=== PATIENT | female | born 1985 | race Hispanic/Latino ===

== ENCOUNTER 2016-12-20 02:10 | Inpatient (IN) | payer BC ==
[2016-12-20] MEDS ORDERED: STADOL IV PRN (03:13)
[2016-12-20] MEDS ORDERED: MINERAL OIL PO PRN (03:13)
[2016-12-20] MEDS ORDERED: POLYCILLIN/NS 2 GM/100 ML 2 GM/100 ML BAG IV ONE (03:13)
[2016-12-20] MEDS ORDERED: BRETHINE IVP PRN (03:13)
[2016-12-20] MEDS ORDERED: BRETHINE SUB-Q PRN (03:13)
[2016-12-20] MEDS ORDERED: PHENERGAN PO PRN ×2 (03:13→07:35)
[2016-12-20] MEDS ORDERED: ePHEDrine SULFATE IV PRN (03:13)
[2016-12-20] MEDS ORDERED: XYLOCAINE 2% INFILTRATI ONE (03:13)
--- NOTE | 2016-12-20 03:21 | History and Physical Report ---
History of Present Illness Date of examination: 12/20/16 Date of admission: 12/20/16 03:15 History of present illness: Presented to Labor & Delivery with c/o regular contractions initial cervical exam was 5cm Menstrual History Regularity: regular Menses every: 28 days Duration: 5 LMP: 03/10/2016 LMP reliability: definite LMP character: normal test type: urine test Date: 05/05/2016 Planned ? yes EDC Calculations Past History : 2 Term Births: 1 Premature Births: 0 Living Children: 1 Para: 1 Mult. Births: 0 Prev : 0 Prev. attempt? 0 Aborta: 0 Elect. Ab: 0 Spont. 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 Infection History Hx of STD: none Varicella/Chicken Pox Status: Previous Disease Genetic History Congenital Heart Defect: Mom: no Dad: no Salvatore Disease: Mom: no Dad: no Thalassemia Mom: no Dad: no Neural Tube Defect Mom: no Dad: no Down's Syndrome Mom: no Dad: no Peter-Sachs Mom: no Dad: no Sickle Cell Disease/Trait Mom: no Dad: no Hemophilia Mom: no Dad: no Muscular Dystrophy Mom: no Dad: no Cystic Fibrosis Mom: no Dad: no [place] Chorea Mom: no Dad: no Mental Retardation Mom: no Dad: no Fragile X Mom: no Dad: no Other Genetic/Chromosomal Disorder Mom: no Dad: no Child w/other defect Mom: no Dad: no Enviromental Exposures Xray Exposure: no Medication, drug, or alcohol use since LMP: no Chemical/Other Exposure: no Exposure to Cat Liter: no Hx of Parvovirus (Fifth Disease): no Occupational Exposure to Children: none Current Allergies (reviewed today): No known allergies Past History Past Medical History: other (See HPI) Past Surgical History: other (See HPI) 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 (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) Family/Genetic History: other (See HPI) Social history: other (See HPI) - Obstetrical History Expected Date of Delivery: 12/25/16 Actual Gestation: 39 Week(s) 2 Day(s) : 2 Para: 1 Hx # Term Pregnancies: 1 Number of Pregnancies: 0 Spontaneous Abortions: 0 Induced : 0 Number of Living Children: 1 Medications and Allergies Allergies Allergy/AdvReac Type Severity Reaction Status Date / Time No Known Allergies Allergy Unverified 07/12/15 12:48 Home Medications Medication Instructions Recorded Confirmed Last Taken Type HYDROcodone/APAP 5-325 [[place] 1 each PO Q6HR PRN #20 tablet 07/12/15 Unknown Rx 5/325] Active Meds: Active Medications Butorphanol Tartrate (Stadol) 2 mg IV Q2H PRN PRN Reason: Pain , Severe (7-10) Ampicillin Sodium (Polycillin/Ns 2 Gm/100 Ml) 2 gm in 100 mls @ 100 mls/hr IV ONCE ONE PRN Reason: Protocol Stop: 12/20/16 04:12 Ampicillin Sodium (Polycillin/Ns 1 Gm/50 Ml) 1 gm in 50 mls @ 100 mls/hr IV Q4HR SINA PRN Reason: Protocol Lactated Ringer's (Lactated Ringers) 1,000 mls @ 125 mls/hr IV DIRECT SINA Oxytocin/Sodium Chloride (Pitocin/Ns 20 Unit/1000ml Drip) 20 units in 1,000 mls @ 125 mls/hr IV DIRECT SINA Mineral Oil (Mineral Oil) 30 ml PO QHS PRN PRN Reason: Constipation Promethazine HCl (Phenergan) 25 mg PO Q6H PRN PRN Reason: Nausea And Vomiting Results Result Diagrams: 12/20/16 03:50 All other labs normal. Assessment and Plan - Patient Problems (1) with 39 completed weeks gestation Current Visit: Yes Status: Acute (2) Active labor at term Current Visit: Yes Status: Acute Plan to address problem: Admitted to labor and delivery patient desires an epidural will follow labor protocol. (3) Group B streptococcal carriage complicating Current Visit: Yes Status: Acute Plan to address problem: We'll give antibiotic prophylaxis
[2016-12-20] MEDS ORDERED: SUBLIMAZE ONE (03:22)
[2016-12-20] MEDS ORDERED: LACTATED RINGERS 1,000 ML IV SCH (04:00)
[2016-12-20 04:18] LABS: Hematocrit 42.9 % (30.3-42.9); Hemoglobin 14.2 gm/dl (10.1-14.3); Mean Corpuscular HGB Conc 33 % (30-34); Mean Corpuscular Hemoglobin 28 pg (28-32); Mean Corpuscular Volume 84 fl (79-97); Platelet Count 144 K/mm3 (140-440); Red Blood Count 5.13 M/mm3 (3.65-5.03); Red Cell Distribution Width 14.8 % (13.2-15.2); White Blood Count 11.8 K/mm3 (4.5-11.0)
[2016-12-20] MEDS: PITOCin/NS 20 UNIT/1000ML DRIP 20 UNITS/1,000 ML BAG IV SCH ×2 (04:37→05:45)
--- NOTE | 2016-12-20 05:13 | Procedure Note ---
OB Delivery Note - Delivery Date of Delivery: 12/20/16 Surgeon: SILAS LEMON Estimated blood loss: 300cc - Vaginal Delivery presentation: vertex Delivery position: OA Intrapartum events: precipitous labor- <3hr Delivery induction: none Delivery monitor: external FHT, external uterine Route of delivery: Delivery placenta: spontaneous Episiotomy: none Delivery laceration: 1st degree Delivery repair: vicryl Anesthesia: local Delivery comments: Patient quickly progressed from 5 cm. Informed by the nurse at 0330 the patient was 5 cm requested an epidural. I received a call at 0400 stating that patient was now 6-7. On my way to the hospital received a phone call at 4:15 send the patient was 9-1/2 cm. Patient had a nurse delivery at 0431 arrived at 0433. She had a right labial tear was bleeding and repaired with 3-0 Vicryl. - Infant A at 1 minute: 8 at 5 minutes: 9 Infant Gender: Female
[2016-12-20] MEDS ORDERED: POLYCILLIN/NS 1 GM/50 ML 1 GM/50 ML BAG IV SCH (07:16)
[2016-12-20] MEDS ORDERED: TYLENOL PO PRN (07:35)
[2016-12-20] MEDS ORDERED: BENADRYL PO PRN (07:35)
[2016-12-20] MEDS ORDERED: NORCO 5/325 PO PRN (07:35)
[2016-12-20] MEDS ORDERED: SODIUM CHLORIDE FLUSH SYRINGE 10 ML IV NR (07:35)
[2016-12-20] MEDS ORDERED: ZOFRAN IV PRN (07:35)
[2016-12-20] MEDS ORDERED: DERMOPLAST TP PRN (07:35)
[2016-12-20] MEDS ORDERED: LANSINOH TP PRN (07:35)
[2016-12-20] MEDS ORDERED: DULCOLAX PR PRN (07:35)
[2016-12-20] MEDS ORDERED: MILK OF MAGNESIA PO PRN (07:35)
[2016-12-20] MEDS: MOTRIN PO SCH ×3 (07:50→23:52)
[2016-12-20] MEDS: TUCKS PAD TP PRN (09:37)
[2016-12-20 18:43] LABS: Hematocrit 36.8 % (30.3-42.9); Hemoglobin 12.2 gm/dl (10.1-14.3)
[2016-12-20] MEDS: SENOKOT S PO SCH (22:03)
[2016-12-20] MEDS: COLACE PO SCH (22:04)
[2016-12-21] MEDS: MOTRIN PO SCH ×3 (05:06→18:25)
[2016-12-21] MEDS ORDERED: BOOSTRIX IM ONE (06:00)
--- NOTE | 2016-12-21 07:51 | Progress Note ---
Assessment and Plan Patient doing well, no complaints. Baby nursing well. Lochia scant, VSSAF, H& H stable 12.2/36.8. GBS+ with only one dose of antibiotics in labor. Plan for d/ c home tomorrow when is given may go. f/u 4 weeks in office. - Patient Problems (1) (normal spontaneous vaginal delivery) Current Visit: Yes Status: Acute (2) Group B streptococcal carriage complicating Current Visit: Yes Status: Acute Subjective - Subjective Date of service: 12/21/16 Principal diagnosis: day #1 s/p Patient reports: appetite normal, voiding normally, pain well controlled, ambulating normally, no dizzy ambulation, no nauseated : doing well, nursing well Objective - Vital Signs Latest vital signs: Vital Signs Temp Pulse Resp BP 12/21/16 00:00 98.2 F 77 20 123/68 12/20/16 16:50 98 F 86 20 116/67 12/20/16 13:20 98.5 F 81 20 106/61 Intake and Output 12/20/16 12/21/16 12/21/16 22:59 06:59 14:59 Intake Total 600 360 Balance 600 360 Intake: Oral 600 360 Other: Total, Intake Amount 240 120 # Voids Void 1 1 - Exam Breasts: Present: normal, Cardiovascular: Present: Regular rate Lungs: Present: Clear to auscultation, Normal air movement Abdomen: Present: normal appearance, soft, normal bowel sounds Vulva: both: laceration/episiotomy Uterus: Present: normal, firm, fundal height at umbilicus Extremities: Present: normal Incision: Present: normal, dry, intact
--- NOTE | 2016-12-21 07:53 | Discharge Summary ---
Providers - Providers Date of Admission: 12/20/16 03:15 Date of discharge: 12/22/16 (desires d/c home) Attending physician: SILAS LEMON 12/20/16 07:35 Consult to Home Energy Auditor [CONS] Routine Reason For Exam: assistance with , SNS Primary care physician: SILAS LEMON Hospitalization Reason for admission: active labor Delivery: Episiotomy: none Laceration: 1st degree Incision: normal, dry, intact Other procedures: none complications: none Discharge diagnosis: IUP at term delivered [place] baby: female Hospital course: uncomplicated vaginal delivery Condition at discharge: Good Disposition: DISCHARGED TO HOME OR SELFCARE - Discharge Diagnoses (1) (normal spontaneous vaginal delivery) Status: Acute (2) Group B streptococcal carriage complicating Status: Acute Plan - Provider Discharge Summary Activity: routine, no sex for 6 weeks, no heavy lifting 4 weeks, no strenuous exercise Diet: routine Instructions: routine Additional instructions: [] Smoking cessation referral if applicable(refer to patient education folder for contact #) [] Refer to [facility] Booklet Call your doctor immediately for: * Fever > 100.5 * Heavy vaginal bleeding ( >1 pad per hour) * Severe persistent headache * Shortness of breath * Reddened, hot, painful area to leg or breast * Drainage or odor from incision. * Keep incision clean and dry at all times and follow doctor's instructions regarding bathing/showering - Follow up plan Follow up: SILAS LEMON MD [Primary Care Provider] - 01/18/17 (Congratulations! Please call [phone] to schedule your visit in 4 weeks. Call for any questions or concerns.)
[2016-12-21] MEDS: SENOKOT S PO SCH ×3 (13:15→23:59)
[2016-12-21] MEDS: COLACE PO SCH (13:16)
[2016-12-21] MEDS: PRENATAL VITAMIN PO SCH (13:27)
[2016-12-22] MEDS: MOTRIN PO SCH ×2 (00:04→05:18)
[2016-12-22] MEDS: COLACE PO SCH ×2 (00:04→10:21)
[2016-12-22 09:22] VITALS: BP 129/68
[2016-12-22] MEDS ORDERED: ZOLOFT PO SCH (10:00)
[2016-12-22] MEDS: TUCKS PAD TP PRN (10:18)
[2016-12-22] MEDS: PRENATAL VITAMIN PO SCH (10:20)
== END 2016-12-22 11:00 | disposition home or self-care (01) | DRG 775 ==
LOC: TRG 02:10 → LD 03:15 → OB 07:27
PROVIDERS: ADMIT Obstetrics & Gynecology; ATTEND Obstetrics & Gynecology
PROC: 10E0XZZ Delivery of Products of Conception, External Approach (ICD-10-PCS; principal; 2016-12-20)
PROC: 0HQ9XZZ Repair Perineum Skin, External Approach (ICD-10-PCS; 2016-12-20)
DX: O99.824 Streptococcus B carrier state complicating childbirth (principal); O62.3 Precipitate labor; O70.0 First degree perineal laceration during delivery; Z3A.39 39 weeks gestation of pregnancy; Z37.0 Single live birth
CPT/HCPCS: 36415; 85014; 85018; 85027; 86850; 86900; 86901; 90471; 90715; 99211; A6250; G0463; J0290; J2590; J3010; J7120

== ENCOUNTER 2020-06-17 05:43 | Observation (INO) | payer BC, OTHER ==
[2020-06-12 13:19] LABS: Basophils % (Auto) 0.5 % (0.0-1.8); Eosinophils # (Auto) 0.2 K/mm3 (0.0-0.4); Eosinophils % (Auto) 2.4 % (0.0-4.3); Hematocrit 42.8 % (30.3-42.9); Hemoglobin 14.7 gm/dl (10.1-14.3); Lymphocytes % (Auto) 26.5 % (13.4-35.0); Mean Corpuscular HGB Conc 35 % (30-34); Mean Corpuscular Volume 80 fl (79-97); Monocytes # (Auto) 0.6 K/mm3 (0.0-0.8); Monocytes % (Auto) 7.2 % (0.0-7.3); Platelet Count 213 K/mm3 (140-440); Red Blood Count 5.34 M/mm3 (3.65-5.03); Red Cell Distribution Width 14.1 % (13.2-15.2)
--- NOTE | 2020-06-12 13:29 | Anesthesia Consultation ---
Anesthesia Consult and Med Hx Date of service: 06/17/20 - Airway Anesthetic Teeth Evaluation: Good ROM Head & Neck: Adequate Mental/Hyoid Distance: Adequate Mallampati Class: Class II Intubation Access Assessment: Good - Pre-Operative Health Status ASA Pre-Surgery Classification: ASA3 Proposed Anesthetic Plan: General Nerve Block: TAP - Pulmonary Hx Asthma: Yes (Exercise induced in the past) COPD: No (+2FS) Hx Pneumonia: No Hx Sleep Apnea: Yes ("mild") - Cardiovascular System Hx Hypertension: No (ECHO [id number]) Hx Heart Murmur: Yes (Innocent) - Central Nervous System Hx Seizures: No Hx Psychiatric Problems: Yes (Anxiety) - Gastrointestinal Hx Ulcer: Yes Hx Gastroesophageal Reflux Disease: Yes - Endocrine Hx Renal Disease: No Hx End Stage Renal Disease: No Hx Hypothyroidism: No Hx Hyperthyroidism: No - Hematic Hx Anemia: No Hx Sickle Cell Disease: No - Other Systems Hx Alcohol Use: No Hx Cancer: No Hx Obesity: Yes
--- NOTE | 2020-06-14 12:18 | History and Physical Report ---
History of Present Illness Date of examination: 06/12/20 Chief complaint: Menorrhagia unrepsonsive to hormonal therapy. She declines other medical/hormonal alternatives and conservative surgical intervention.She now desires definitive surgery for treatment in the form of hysterectomy. 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 of genital herpes: no Partner hx. of genital herpes: no Rash/viral illness since LMP: no Hx of STD: No Active Medications (reviewed today): MIRENA (52 MG) 20 MCG/24HR INTRAUTERINE INTRAUTERINE DEVICE (LEVONORGESTREL) insert with next WELLBUTRIN SR 150 MG ORAL TABLET EXTENDED RELEASE 12 HOUR (BUPROPION HCL) ZYRTEC ALLERGY TABLET (CETIRIZINE HCL TABS) FLONASE 50 MCG/ACT NASAL SUSPENSION (FLUTICASONE PROPIONATE) 2 sprays, each nostril x1 qd Current Allergies (reviewed today): No known allergies Past Medical History: Colon tubular adenoma (07/28/2018) needs colonoscopy 2022 Sleep apnea (2017) CPAP BRCA negative (23&me testing) Abnormal Pap Smear (2008 ASCUS negatve HPV) Past Surgical History: Reviewed history from 08/04/2018 and no changes required: ganglion cyst removed (B) wrist lsc (B) salpingectomy for sterilization Colonoscopy w/ polypectomy (07/28/2018) Family History Summary: Reviewed history Last on 11/16/2019 and no changes required:06/14/2020 Mother - Has Family History Breast Cancer - Entered On: 06/14/2020 Father - Has Family History of Colon Polyps - Entered On: 08/04/2018 Mother - Has Family History of Colon Polyps - Entered On: 08/04/2018 Uncle - Has Family History Colon Cancer - maternal great - Entered On: 08/04/2018 MGF - Has Family History of Lung Cancer - Entered On: 09/10/2017 PGF - Has Family History of Kidney/Urinary Tract Cancer - bladder - Entered On: 08/04/2018 Other Family Member - Has No Family History of Uterine Cancer - Entered On: 04/19/2016 Other Family Member - Has No Family History of Small Bowel Cancer - Entered On: 04/19/2016 Other Family Member - Has No Family History of Stomach Cancer - Entered On: 04/19/2016 Other Family Member - Has No Family History of Pancreatic Cancer - Entered On: 04/19/2016 Other Family Member - Has No Family History of Ovarvian Cancer - Entered On: 04/19/2016 Other Family Member - Has No Family History of DVT/PE on OCP - Entered On: 04/19/2016 Other Family Member - Has No Family History of Brain Cancer - Entered On: 04/19/2016 Other Family Member - Has No Family History of Breast Cancer - Entered On: 04/19/2016 Other Family Member - Has No Family History of Biliary Tract Cancer - Entered On: 04/19/2016 General Comments - FH: No Family History of Colon Cancer No Family History of Ovarian Cancer No Family History of DVT/PE on OCP Family History of Hypertension- maternal GF Social History: Reviewed history from 04/19/2016 and no changes required: 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 Risk Factors: Smoked Tobacco Use: Never smoker Smokeless Tobacco Use: Never Passive smoke exposure: no Drug use: no HIV high-risk behavior: no Alcohol use: no Exercise: yes Seatbelt use: 100 % PAP Smear History: Date of Last PAP Smear: 11/19/2019 Physical Exam Appearance: well developed, well nourished, no acute distress Other Exams Lungs: no rales, rhonchi, or wheezes Heart: S1, S2, no murmur, rub, or gallop Genitourinary Exam Uterus: deferred for EUA Impression & Recommendations: Problem # 1: Excessive and frequent menstruation with regular cycle (ICD-626.2) ([id number]-G47.0) Diagnosis explained to patient . Questions answered. Discussed with patient various medical and surgical therapies common for treatment: Hormonal/medical therapy,endometrial ablation or hysterectomy. She desires to proceed with hysterectomy. Discussed risks and benefits of laparotomy, laparoscopy, vaginal and robotic assisted approaches for hysterectomies. Patient desires definitive treatment in the form of robot assisted laparoscopic total hysterectomy. The risks and alternatives for this surgery were reviewed with the patient. She was informed of the risks of the surgery including, but not limited to, pain, infection, bleeding possibly heavy enough to require a blood transfusion with associated risks of infections (hepatitis and HIV) and transfusion reactions, possible damage to bowel, bladder or ureter(s). Patient understands that this surgery will make her sterile. Indications to abort a robotic/laparoscopic procedure and perform an open procedure were explained. Patient understands if her ovaries are removed she will become menopausal. She desires ovarian conservation. She was informed she may require surgery later to have her ovaries removed for a benign or mailgnant condition. Patient advised the small risks of spreading of malignancy if morcellation is required during the surgery patient understands and approves performing if necessary. Questions answered. Consent reviewed and signed The patient was instructed/informed the following: The normal length of hospital stay for this procedure.Patient desires discharge on the same day if stable. Nothing to eat or drink after midnight the evening prior to surgery. Clear liquids the day before surgery. Pre-op instruction sheets given. Wound care instructions given. Medications and Allergies Allergies Allergy/AdvReac Type Severity Reaction Status Date / Time No Known Allergies Allergy Unverified 06/10/20 15:40 Home Medications Medication Instructions Recorded Confirmed Last Taken Type Bupropion HCl [Wellbutrin XL] 300 mg PO QAM 06/10/20 06/10/20 Unknown History Escitalopram Oxalate [Lexapro] 20 mg PO DAILY 06/10/20 06/10/20 Unknown History Active Meds: Active Medications Acetaminophen (Tylenol) 1,000 mg PO ONCE NR Stop: 06/17/20 23:00 Celecoxib (Celebrex) 400 mg PO PREOP NR Stop: 06/17/20 23:00 Fentanyl (Sublimaze) 100 mcg IV ONCE NR Stop: 06/17/20 23:00 Gabapentin (Gabapentin) 300 mg PO PREOP NR Stop: 06/17/20 23:00 Lactated Ringer's (Lactated Ringers) 1,000 mls @ 125 mls/hr IV DIRECT SINA Magnesium Oxide (Mag-Ox) 400 mg PO ONCE ONE Stop: 06/17/20 06:01 Midazolam HCl (Versed) 2 mg IV PREOP NR Stop: 06/17/20 23:59 Exam Vital Signs Temp Pulse Resp BP Pulse Ox 98.2 F 74 18 119/69 96 06/12/20 13:00 06/12/20 13:00 06/12/20 13:00 06/12/20 13:00 06/12/20 13:00 Results - Labs 06/12/20 13:00 Assessment and Plan - Patient Problems (1) Excessive and frequent menstruation with regular cycle Status: Chronic
[2020-06-17] MEDS ORDERED: LACTATED RINGERS 1,000 ML IV SCH (06:00)
[2020-06-17] MEDS ORDERED: ACETAMINOPHEN 500 MG TAB PO NR (06:00)
[2020-06-17] MEDS ORDERED: MAGNESIUM OXIDE 400 MG TAB PO ONE (06:00)
[2020-06-17] MEDS ORDERED: MIDAZOLAM 2 MG/2 ML INJ IV NR (06:00)
[2020-06-17] MEDS ORDERED: fentaNYL 100 MCG/2 ML INJ IV NR (06:00)
[2020-06-17] MEDS ORDERED: CELECOXIB 200 MG CAP PO NR (06:00)
[2020-06-17] MEDS ORDERED: ceFAZolin/Water 2 GM/20 ML 2 GM/20 ML SYRINGE IV NR (06:00)
[2020-06-17] MEDS ORDERED: GABAPENTIN 300 MG CAP PO NR (06:00)
[2020-06-17] MEDS ORDERED: BACTERIOSTATIC SODIUM CHLORIDE 0.9% 30 ML VIAL INFILTRATI ONE (06:06)
[2020-06-17] MEDS ORDERED: BUPIVACAINE-EPINEPHRINE/PF 0.25%-1:200,000 (30 ML) VIAL INFILTRATI ONE (07:15)
[2020-06-17] MEDS ORDERED: dexAMETHasone 4 MG/ML VIAL ONE (07:15)
[2020-06-17] MEDS ORDERED: HYDROmorphone 1 MG/1 ML INJ IV PRN ×2 (07:24)
[2020-06-17] MEDS ORDERED: ONDANSETRON 4 MG/2 ML INJ IV PRN (07:24)
--- NOTE | 2020-06-17 07:24 | Anesthesia Day of Surgery ---
Anesthesia Day of Surgery - Day of Surgery Patient Examined: Yes Patient H&P Reviewed: Yes Patient is NPO: Yes
[2020-06-17] MEDS ORDERED: ROCURONIUM 50 MG/5 ML INJ IV ONE (07:26)
[2020-06-17] MEDS ORDERED: LIDOCAINE MPF (2%) 20 MG/1 ML VIAL 5 ML ONE (07:26)
[2020-06-17] MEDS ORDERED: propofoL 200 MG/20 ML VIAL IV ONE (07:26)
[2020-06-17] MEDS ORDERED: PHENYLEPHRINE/NS 1,000 MCG/10 ML SYRINGE (OR USE) IV ONE (07:26)
[2020-06-17] MEDS ORDERED: dexAMETHasone 20 MG/5 ML VIAL ONE (07:26)
[2020-06-17] MEDS ORDERED: fentaNYL 100 MCG/2 ML INJ ONE (07:26)
[2020-06-17] MEDS ORDERED: ePHEDrine SULFATE 50 MG/1 ML INJ ONE (07:30)
[2020-06-17] MEDS ORDERED: NEOMY 40 MG/POLYMYXIN B 200,000 UNITS/ML (GU) AMPULE IR ONE ×3 (07:34→09:13)
[2020-06-17] MEDS ORDERED: MIDAZOLAM 2 MG/2 ML INJ ONE (07:48)
[2020-06-17] MEDS ORDERED: HYDROmorphone 1 MG/1 ML INJ ONE ×3 (08:03→10:41)
[2020-06-17] MEDS ORDERED: CALCIUM CHLORIDE 1,000 MG/10 ML SYRINGE IV ONE ×2 (08:22→08:42)
[2020-06-17] MEDS ORDERED: THROMBIN (RECOMBINANT) 5,000 UNIT VIAL TP ONE ×2 (08:22→08:42)
[2020-06-17] MEDS ORDERED: SODIUM CHLORIDE 0.9% IRRIG SOLN 2000 ML IR ONE (08:41)
[2020-06-17] MEDS ORDERED: VASOPRESSIN 20 UNIT/1 ML INJ IM ONE (09:00)
[2020-06-17] MEDS ORDERED: SODIUM CHLORIDE 0.9% 250 ML IVPB IV ONE (09:00)
[2020-06-17] MEDS ORDERED: SODIUM CHLORIDE 0.9% 250ML 250 ML ONE (09:12)
[2020-06-17] MEDS ORDERED: VASOPRESSIN 20 UNIT/1 ML INJ ONE (09:13)
--- NOTE | 2020-06-17 09:53 | Operative Report ---
Operative Report Operative Report: Date: 06/17/2020 Preoperative diagnosis: 1. Menorrhagia unresponsive to hormonal therapy 2. Body mass index of 28 kg/m Postoperative diagnosis: 1. Menorrhagia unresponsive to hormonal therapy 2. Body mass index of 28 kg/m Procedure: 1. Robotic-assisted laparoscopic total hysterectomy Surgeon: Lakia Ayon MD Student Life Dean: Yolande Plata CST Anesthesiologist: Dr. Stokes Anesthesia: General endotracheal anesthesia EBL: Approximately 75 mL Findings: EUA: Uterus palpated to approximately 10 weeks. Uterus was sounded to 10 cm. Grossly normal ovaries. Procedure: Patient was taken to the OR and placed in the supine position. General anesthesia was induced and an oral gastric tube was placed. Her neck and head were placed on foam support. Foam eye protection with goggles were secured in place. Then foam face protection was placed and secured. Foam shoulder pads were then positioned on her shoulders for Trendelenburg positioning. She was then placed in dorsolithotomy position. Exam under anesthesia as above. The abdomen and vagina were then prepped and draped in the usual sterile fashion. Timeout was performed. A Evans catheter was inserted into the bladder with drainage of clear yellow urine. The operative speculum was introduced into the vagina and the anterior lip of the cervix was grasped with single-toothed tenaculum. The uterus was sounded to 10 cm. The cervix was progressively dilated to allow the large V care uterine manipulator. The bulb of the manipulator was inflated and the speculum and tenaculum were removed. The cup of the manipulator was placed around the cervix and the blue occluder of the manipulator was properly positioned in the vagina and secured. A laparotomy sponge that was saturated with a solution of polymyxin and saline was placed in the vagina to ensure pneumoperitoneum. Sterile gloves were placed and attention was turned to the abdomen. A 10 mm midline vertical supraumbilical incision was made approximately 10 cm superior to the elevated fundus of the uterus. A 10-12 mm trocar with the laparoscope and camera attached was introduced through this incision under direct visualization. The abdomen was insufflated. No obvious bowel, bladder, ureteral, or major vascular injury was noted. The patient was then placed in steep Trendelenburg position and the following trochars were placed under direct visualization: 8 mm robotic trochars were placed through incisions made in the bilateral midclavicular lower abdominal region approximately 10 cm lateral to the midline incision, and a 5 mm trocar was placed through an incision made in the right lower lateral pelvis. The 10 mm laparoscope was then replaced by a 5 mm laparoscope that was placed through the 5 millimeter lateral trocar. The 12 mm trocar was then removed and the Louie Arceo fascial closure device was placed through the incision and a 0 Vicryl was placed through the fascia. Once the suture was secured the 12 mm trocar was reintroduced. Once the trochars were in the appropriate positions, the da Tamie robot system was engaged. The EndoShears and bipolar device was placed through the 8 mm trochars and positioned then attention was turned to the console. The uterus was elevated, the utero-ovarian ligaments were clamped. cauterized and incised bilaterally using 30 W of energy. Then the round ligaments were clamped, cauterized and incised bilaterally. The anterior leaf of the broad ligament was elevated and with careful blunt and sharp dissection the bladder flap was created and dissected away from the lower uterine segment and cervix. The posterior leaf of the broad ligament was dissected away from the uterine vessels. The cup of the uterine manipulator was palpated both anteriorly and posteriorly. The bladder was further dissected away from the lower uterine segment. The uterine vessels were then clamped and cauterized bilaterally. Blanching of the uterus was then noted. Attention was again turned to the anterior lower uterine segment and the bladder was confirmed to be away from the operative field. Then attention was turned again to the posterior where the cup of the manipulator was palpated and a colpotomy was performed down to the cup. The incision was extended in the lateral position to the uterine vessels that were again clamped and cauterized and incised. Continuing along the cup of the manipulator in a circumferential manner the colpotomy was completed. The uterus and cervix were then removed through the vaginal incision. The pelvis was irrigated with warm normal saline. A moist laparotomy sponge was placed in the vagina to maintain pneumoperitoneum. The vagina cuff was reapproximated using V LOC 180 suture. Then a J stitch was performed to secure the suture. Again the pelvis was copiously irrigated with polymixin in warm normal saline. The laparotomy sponge was removed from the vagina. No obvious evidence of bowel, bladder, ureteral, or major vascular injury was noted. Once hemostasis was noted, platelet rich plasma was applied to the operative field to ensure hemostasis. Platelet poor plasma was applied to decrease formation of adhesions. Then the instruments were removed, the robot was disengaged. The 10-12 mm trocar was removed and the fascia was ligated with the 0 Vicryl suture that was placed at the beginning of the procedure. The patient was taken out of Trendelenburg position, the abdomen was desufflated, the remaining trochars were removed. Incisions were reapproximated using 4-0 Monocryl in a subcuticular manner. Surgiseal was placed over the other incisions. The vagina was then inspected, the cuff was palpated to be intact and no bleeding was noted and clear yellow urine was draining into the Evans bag from the bladder at the end of the procedure. Counts were correct 3. She was then prep ped for Dr. Kumari's portion of the procedure..
[2020-06-17] MEDS ORDERED: LACTATED RINGERS 1,000 ML ONE (11:11)
--- NOTE | 2020-06-17 11:40 | Post Operative Note ---
Date of procedure: 06/17/20 Pre-op diagnosis: goldie Post-op diagnosis: other (small cystocele) Procedure: sling, cysto, cytocele repair Anesthesia: CASSANDRA Surgeon: GIOVANI MORRISON Estimated blood loss: 50-100ml Condition: stable (pt has vaginal packing/ home with [facility]clean/ pt can removed packing in am)
--- NOTE | 2020-06-17 11:51 | Operative Report ---
PREOPERATIVE DIAGNOSIS: Stress urinary incontinence. POSTOPERATIVE DIAGNOSES: Stress urinary incontinence. Mild cystocele. PROCEDURE: Cystoscopy, pubovaginal sling (TVT type), cystocele repair with a human graft. SURGEON: Sameer Kumari MD ANESTHESIA: General. ESTIMATED BLOOD LOSS: Minimal. FLUIDS: Crystalloid. COMPLICATIONS: No complications. INDICATIONS: This patient is a 34-year-old female, 2 kids, with a fibroid, was referred by Dr. Ayon for stress incontinence. She has 2 kids delivered vaginally. She is due for a robotic hysterectomy due to fibroids. Urodynamic testing revealed a 600 mL bladder capacity. The patient was unable to void due to anxiety, which is common in this scenario. She voided eventually with postvoid residual of 40 mL. She gives a history of stress urinary incontinence several years. We discussed options. She agreed to proceed with bladder suspension. We discussed the various types of graft material that would be used and she is in agreement. DESCRIPTION OF PROCEDURE: Upon entering the operating room, the patient was in a modified dorsal lithotomy position. A Evans catheter was in the bladder. A plastic Almo retractor was used for exposure. Dilute Pitressin was injected in the anterior vaginal wall. Midline anterior vaginal wall incision was made. Lateral flaps were dissected. The endopelvic fascia was opened bilaterally. A small cystocele could be appreciated. Using the TVT tape and a trocar, dissection along the posterior aspect of the pubic rami. Using the trocar then it was pushed on to the anterior abdominal wall. Small incision was made with the Bovie. The trocars were placed on the left and right side of the urethra. Cystoscopy was performed. No bladder injury could be appreciated. Using cadaveric fascia, approximately 2 cm x 1 cm segment was excised and then placed on the periurethral tissues and attached with a 2-0 Vicryl in interrupted fashion. The TVT sling was pulled gently to apply some anterior traction. The tape was cut below the skin line. The 2-0 Vicryl was used to close the suprapubic incisions on the abdomen and a Band-Aid was placed over them. Copious irrigation was performed. Adequate hemostasis achieved. Anterior vaginal wall was closed using 2-0 Vicryl in a running fashion. Iodoform gauze was placed vaginally. The patient tolerated the procedure well. She was extubated and taken to recovery room. She will go home on Macrobid one a day and [place]. JOB# [id number] [facility]
[2020-06-17] MEDS ORDERED: NON-FORMULARY EACH (Bupropion Hcl [Wellbutrin Xl] 300 MG) PO SCH (12:00)
[2020-06-17] MEDS ORDERED: buPROPion XL 150 MG TAB PO SCH (12:00)
[2020-06-17] MEDS ORDERED: METOCLOPRAMIDE 10 MG/2 ML INJ IV PRN (12:21)
[2020-06-17] MEDS ORDERED: METOCLOPRAMIDE 10 MG TAB PO PRN (12:21)
[2020-06-17] MEDS ORDERED: MORPHINE 2 MG/1 ML INJ IV PRN (12:21)
[2020-06-17] MEDS ORDERED: ONDANSETRON 4 MG ODT TAB PO PRN (12:21)
[2020-06-17] MEDS ORDERED: MORPHINE 4 MG/1 ML INJ IV PRN (12:21)
--- NOTE | 2020-06-17 13:19 | Post Anesthesia Evaluation ---
- Post Anesthesia Evaluation Patient Participated: Yes Airway Patent: Yes Stable Respiratory Function: Yes Nausea/Vomiting: No Temp > 96.8F: Yes Pain Manageable: Yes Adequeate Hydration: Yes Anesthesia Complications: No Block Receding Appropriately: Not Applicable Patient on Ventilator: No
[2020-06-17] MEDS: ceFAZolin/NS 1 GM/50 ML 1 GM/50 ML BAG IV SCH ×2 (13:40→21:27)
[2020-06-17] MEDS: FAMOTIDINE 20 MG/2 ML INJ IV SCH ×2 (13:41→21:16)
[2020-06-17] MEDS: ACETAMINOPHEN 325 MG TAB PO SCH ×2 (13:42→21:25)
[2020-06-17] MEDS: oxyCODONE /ACETAMINOPHEN 5-325MG TAB PO PRN (13:44)
[2020-06-17] MEDS ORDERED: NON-FORMULARY EACH (Escitalopram Oxalate [Lexapro] 20 MG) PO SCH (14:00)
[2020-06-17] MEDS ORDERED: ESCITALOPRAM 10 MG TAB PO SCH (14:00)
[2020-06-17] MEDS: KETOROLAC 30 MG/1 ML INJ IV SCH ×2 (15:20→21:15)
[2020-06-17] MEDS: LACTATED RINGERS 1,000 ML IV SCH ×2 (15:22→21:13)
[2020-06-17 18:15] LABS: Hematocrit 36.2 % (30.3-42.9); Hemoglobin 12.3 gm/dl (10.1-14.3)
--- NOTE | 2020-06-17 19:16 | Progress Note ---
Assessment and Plan Doing well, No s/s bleeding, she had a episode of asymptomatic hypotension, UO clear and normal. Operative findings and procedure explained. Questions encouraged and answered, she voiced understanding and agrees with POC for ? d/c in am if she remains stable - Patient Problems (1) Excessive and frequent menstruation with regular cycle Current Visit: No Status: Resolved (2) History of robot-assisted laparoscopic hysterectomy Current Visit: Yes Status: Acute (3) History of pubovaginal sling Current Visit: Yes Status: Acute (4) S/P cystoscopy Current Visit: Yes Status: Acute Subjective - Subjective Date of service: 06/17/20 Principal diagnosis: DOS s/p RALTH w/ sling, cysto, cytocele repair Interval history: Resting in bed with her mother at the bedside, No complaints Patient reports: appetite normal, pain well controlled Objective - Vital Signs Latest vital signs: Vital Signs Temp Pulse Resp Resp BP BP Pulse Ox 06/17/20 18:42 20 06/17/20 17:03 98.1 F 89 18 86/43 96 06/17/20 15:20 18 06/17/20 15:19 99 06/17/20 15:18 99 06/17/20 14:36 98.2 F 98 H 18 100/46 97 06/17/20 13:44 18 06/17/20 13:42 18 06/17/20 12:15 18 97 06/17/20 11:45 81 14 103/48 100 06/17/20 11:30 77 14 94/49 98 06/17/20 11:15 71 14 89/45 99 06/17/20 11:00 97.6 F 73 12 86/41 99 06/17/20 10:45 79 12 93/48 99 06/17/20 10:35 66 12 102/50 100 06/17/20 10:30 69 12 104/55 100 06/17/20 10:24 97.0 F L 106 H 12 79/32 100 06/17/20 07:48 16 06/17/20 07:35 68 12 108/60 98 06/17/20 07:28 87 12 111/61 99 06/17/20 07:22 73 10 L 105/59 98 06/17/20 07:17 70 15 108/69 99 06/17/20 07:01 20 06/17/20 06:20 97.9 F 81 20 101/67 97 06/17/20 06:15 20 Intake and Output 06/17/20 06/17/20 06/17/20 06:59 14:59 22:59 Intake Total 0 1420 560 Output Total 125 Balance 0 1295 560 Intake: IV 0 1300 Oral 120 560 Output: Urine 125 Other: Total, Intake Amount 120 320 Voiding Method Toilet Indwelling Catheter Indwelling Catheter # Voids Indwelling Catheter 900 - Exam Breasts: Present: deferred Cardiovascular: Present: Regular rate Lungs: Present: Clear to auscultation, Normal air movement Abdomen: Present: normal appearance, soft, normal bowel sounds Extremities: Present: other (SCDs in place and functioning appropriatelu) Incision: Present: normal, dry, intact
[2020-06-17] MEDS: buPROPion XL 150 MG TAB PO SCH (21:19)
[2020-06-17] MEDS: ESCITALOPRAM 10 MG TAB PO SCH (21:20)
[2020-06-18] MEDS: KETOROLAC 30 MG/1 ML INJ IV SCH ×2 (02:42→09:19)
[2020-06-18] MEDS: ACETAMINOPHEN 325 MG TAB PO SCH (02:43)
[2020-06-18] MEDS: oxyCODONE /ACETAMINOPHEN 5-325MG TAB PO PRN (05:01)
[2020-06-18] MEDS: LACTATED RINGERS 1,000 ML IV SCH (06:12)
--- NOTE | 2020-06-18 09:08 | Progress Note ---
Assessment and Plan Doing well, desires d/c home. Excellent UO that's clear, however has had several episodes of hypotension although asymptomatic. Doubt she is actively bleeding at this time, will rechk h/h this am and ? d/c home if stable. Patient voiced understanding and agrees with plan of care - Patient Problems (1) Excessive and frequent menstruation with regular cycle Current Visit: No Status: Resolved (2) History of robot-assisted laparoscopic hysterectomy Current Visit: Yes Status: Acute (3) History of pubovaginal sling Current Visit: Yes Status: Acute (4) S/P cystoscopy Current Visit: Yes Status: Acute Subjective - Subjective Principal diagnosis: POD#1 s/p RALTH w/ sling, cysto, cytocele repair Interval history: Resting in bed with her mother at the bedside, No complaints Patient reports: appetite normal, voiding normally, ambulating normally (Denies lightheadedness or dizziness with ambulation, states her SBP was 90 sitting and 97 lying. States pain is mostly vaginal, denies bleeding. ) Objective - Vital Signs Latest vital signs: Vital Signs Temp Pulse Resp Resp BP BP Pulse Ox 06/18/20 08:18 98 06/18/20 08:11 98.0 F 72 18 97/49 97 06/18/20 05:10 97.9 F 91 H 20 101/57 96 06/18/20 01:19 97.7 F 77 20 97/45 95 06/17/20 20:17 98.1 F 91 H 20 96/48 93 06/17/20 18:42 20 06/17/20 17:03 98.1 F 89 18 86/43 96 06/17/20 15:20 18 06/17/20 15:19 99 06/17/20 15:18 99 06/17/20 14:36 98.2 F 98 H 18 100/46 97 06/17/20 13:44 18 06/17/20 13:42 18 06/17/20 12:15 18 97 06/17/20 11:45 81 14 103/48 100 06/17/20 11:30 77 14 94/49 98 06/17/20 11:15 71 14 89/45 99 06/17/20 11:00 97.6 F 73 12 86/41 99 06/17/20 10:45 79 12 93/48 99 06/17/20 10:35 66 12 102/50 100 06/17/20 10:30 69 12 104/55 100 06/17/20 10:24 97.0 F L 106 H 12 79/32 100 Intake and Output 06/17/20 06/18/20 06/18/20 22:59 06:59 14:59 Intake Total 1291.25 1360 Output Total 1000 1400 1200 Balance 291.25 -40 -1200 Intake: IV 731.25 1000 Lactated Ringers 1,000 ml 731.25 1000 @ 125 mls/hr IV DIRECT SINA Rx#:[id number] Oral 560 360 Output: Urine 1000 1400 1200 Indwelling Catheter 1000 1400 1200 Other: Total, Intake Amount 320 120 Total, Output Amount 1000 1400 1200 Voiding Method Indwelling Catheter Indwelling Catheter # Voids Indwelling Catheter 900 - Exam Breasts: Present: deferred Cardiovascular: Present: Regular rate Lungs: Present: Clear to auscultation, Normal air movement Abdomen: Present: normal appearance, soft, normal bowel sounds. Absent: distention, tenderness, guarding Extremities: Present: normal. Absent: tenderness, edema Incision: Present: normal, dry, intact
[2020-06-18] MEDS ORDERED: IBUPROFEN 800 MG TAB PO PRN ×2 (09:13→15:00)
[2020-06-18] MEDS: FAMOTIDINE 20 MG/2 ML INJ IV SCH (09:14)
[2020-06-18] MEDS ORDERED: oxyCODONE /ACETAMINOPHEN 5-325MG TAB PO PRN (09:30)
[2020-06-18] MEDS: ESCITALOPRAM 10 MG TAB PO SCH (10:01)
[2020-06-18] MEDS: buPROPion XL 150 MG TAB PO SCH (10:01)
[2020-06-18 10:16] LABS: Hematocrit 34.7 % (30.3-42.9); Hemoglobin 11.6 gm/dl (10.1-14.3)
--- NOTE | 2020-06-18 11:56 | Discharge Summary ---
Providers - Providers Date of Admission: 06/17/20 09:38 Date of discharge: 06/18/20 Attending physician: KENYA REY Primary care physician: [employer] Hospitalization Condition: Good Procedures: RALTH, pubvaginal sling, cystoscopy Hospital course: Postop course was significant for hypotension episodes however h/h stable and she was asymptomatic and she desires d/c home Disposition: DC-01 TO HOME OR SELFCARE - Discharge Diagnoses (1) Excessive and frequent menstruation with regular cycle Status: Resolved (2) History of robot-assisted laparoscopic hysterectomy Status: Acute (3) History of pubovaginal sling Status: Acute (4) S/P cystoscopy Status: Acute Core Measure Documentation - Palliative Care Palliative Care/ Comfort Measures: Not Applicable - Core Measures Any of the following diagnoses?: none Exam - Physical Exam Narrative exam: see previous note - Constitutional Vitals: Temp Pulse Resp BP Pulse Ox 98.0 F 72 18 97/49 98 06/18/20 08:11 06/18/20 08:11 06/18/20 08:11 06/18/20 08:11 06/18/20 08:18 General appearance: Present: no acute distress Plan Activity: other (No sex, nodriving, ambulate ~1mile on your property a day.) Weight Bearing Status: Full Weight Bearing Diet: regular (Eat small meals frequently, avoid spicy, high sodium, fatty foods. Drink ~90oz water a day. ) Wound: open to air, keep clean and dry Special Instructions: no heavy lifting (greater than 25lbs) Care Plan Goals: call office to schedule post-operative appointment Call your doctor immediately for: * Fever > 100.5 * Heavy vaginal bleeding ( >1 pad per hour) * Severe persistent headache * Shortness of breath * Reddened, hot, painful area to leg or breast * Drainage or odor from incision. * Keep incision clean and dry at all times and follow doctor's instructions regarding bathing/showering Follow up with: PRIMARY CARE, [Primary Care Provider] - 7 Days KENYA REY MD [Staff Physician] - (as scheduled) Forms: [facility] Discharge Summary Prescriptions: Ibuprofen [Motrin 800 MG tab] 800 mg PO TID PRN #30 tablet PRN Reason: Pain oxyCODONE /ACETAMINOPHEN [Percocet 5/325 mg] 1 - 2 tab PO Q6H PRN #10 tablet PRN Reason: Pain, Moderate (4-6)
[2020-06-18 13:06] VITALS: BP 98/45
== END 2020-06-18 13:43 | disposition home or self-care (01) ==
LOC: OR 05:43 → OB 09:38
PROVIDERS: ADMIT Obstetrics & Gynecology; ATTEND Obstetrics & Gynecology
DX: N92.0 Excessive and frequent menstruation with regular cycle (principal); Z20.828 Contact with and (suspected) exposure to other viral communicable diseases; N39.3 Stress incontinence (female) (male); G47.30 Sleep apnea, unspecified; Z90.710 Acquired absence of both cervix and uterus
CPT/HCPCS: 36415; 57240; 58570; 64450; 81025; 85014; 85018; 85025; 86850; 86900; 86901; 88307; 94760; 96361; 96365; 96366; 96375; 96376; A4217; C1762; C1771; G0378; J0690; J1100; J1170; J1885; J2250; J2270; J2370; J2405; J2704; J3010; J7050; J7120; S2900; U0003